=== PATIENT | female | born 1955 | race Caucasian/White ===

== ENCOUNTER 2016-07-01 13:25 | Emergency (ER) | payer BC ==
[~2016-07-01] VITALS: Ht 167.6 cm; Wt 68.0 kg
[2016-07-01 13:46] VITALS: BP 141/86
--- NOTE | 2016-07-01 14:51 | NUR ---
Patient ambulated to bed 4. RN evaluating patient at bedside.
--- NOTE | 2016-07-01 15:10 | NUR ---
PT PRESENTS TO ER W/C/O FLU S/SX; N/V, GENERALIZED BODY ACHES X3 DAYS. DENIES DIARRHEA; SKIN IS PINK/WARM/DRY; AAOX4 WITH EVEN AND STEADY GAIT; LUNGS CLEAR BL; HR EVEN AND REGULAR; PT DENIES ANY FEVER, CP, SOB, OR COUGH AT THIS TIME; PATIENT STATES PAIN OF 10/10 AT THIS TIME; VSS; PATIENT POSITIONED FOR COMFORT; HOB ELEVATED; BEDRAILS UP X2; BED DOWN. ER MD MADE AWARE OF PT STATUS.
[2016-07-01] MEDS ORDERED: KETOROLAC 60 MG/2 ML VIAL IM ONE (15:20)
[2016-07-01] MEDS ORDERED: ONDANSETRON 4 MG ODT PO ONE (15:20)
[2016-07-01 16:39] VITALS: BP 114/81
--- NOTE | 2016-07-01 16:39 | NUR ---
Patient discharged with v/s stable. Written and verbal after care instructions given and explained. Patient alert, oriented and verbalized understanding of instructions. Ambulatory with steady gait. All questions addressed prior to discharge. ID band removed. Patient advised to follow up with PMD. Rx of ZOFRAN, TRAMADOL given. Patient educated on indication of medication including possible reaction and side effects. Opportunity to ask questions provided and answered.
== END 2016-07-01 16:39 | disposition home or self-care (01) ==
LOC: MED 13:25
DX: B34.9 Viral infection, unspecified (principal); R03.0 Elevated blood-pressure reading, without diagnosis of hypertension
CPT/HCPCS: 96372; 99283; J1885; S0119

== ENCOUNTER 2020-08-10 01:25 | Emergency (ER) | payer BC ==
[~2020-08-10] VITALS: Ht 167.6 cm; Wt 82.1 kg
[2020-08-10 01:37] VITALS: BP 159/93
--- NOTE | 2020-08-10 01:39 | NUR ---
ERMD IN TRIAGE FOR MEDICAL EVALUATION.
--- NOTE | 2020-08-10 01:43 | NUR ---
PT TAKEN TO BED 2
--- NOTE | 2020-08-10 01:43 | NUR ---
65 Y/O FEMALE CAME TO THE ED C/O RT UPPER LEG PAIN. PT STATES THAT SHE VAS A VARICOSE VEIN THAT IS CAUSING THE PAIN. UPPER LEG HAS A VARICOSE VEIN THAT IS SWOLLEN, TENDER AND VERY WARM TO TOUCH. PT STATES THAT 10/ RT UPPER LEG PAIN IS RADIATING TO HER RIGHT LOWER EXTREMITIES. PMH: DENIES NKA
[2020-08-10] MEDS ORDERED: cefTRIAXone 1,000 MG VIAL ONE (02:09)
[2020-08-10] MEDS ORDERED: CEPH-588 PO (02:10)
[2020-08-10] MEDS ORDERED: IBUP-2218 PO (02:10)
[2020-08-10] MEDS ORDERED: LIDOCAINE MPF 1% 5 ML ONE (02:10)
[2020-08-10] MEDS ORDERED: ACET-9525 PO (02:10)
[2020-08-10] MEDS ORDERED: ACET-8386 PO (02:12)
[2020-08-10] MEDS: MORPHINE SULFATE 4 MG/ML SYR IM ONE (02:21)
[2020-08-10] MEDS: cefTRIAXone 1,000 MG in LIDOCAINE MPF 1% 2.1 ML IM ONE (02:23)
[2020-08-10] MEDS: ONDANSETRON 4 MG ODT PO ONE (02:24)
--- NOTE | 2020-08-10 02:50 | NUR ---
Patient discharged with v/s stable. Written and verbal after care instructions given and explained. Patient verbalized understanding. Ambulatory with steady gait. All questions addressed prior to discharge. Advised to follow up with PMD.
[2020-08-10 02:54] VITALS: BP 159/93
== END 2020-08-10 02:50 | disposition home or self-care (01) ==
LOC: MED 01:25
DX: L03.115 Cellulitis of right lower limb (principal); Z79.899 Other long term (current) drug therapy
CPT/HCPCS: 96372; 99284; J0696; J2001; J2270; Q0162

== ENCOUNTER 2020-08-26 05:10 | Inpatient (IN) | payer BC, SELFPAY ==
[~2020-08-26] VITALS: Ht 167.6 cm; Wt 79.4 kg
[~2020-08-26 05:10] MED LIST: ACET-8386 PO; CEPH-588 PO; IBUP-2218 PO
[2020-08-26 05:15] VITALS: BP 143/76
[2020-08-26] MEDS ORDERED: methylPREDNISolone SS 125 MG/2 ML VIAL IVP ONE (06:30)
[2020-08-26] MEDS ORDERED: ALBUTEROL SULFATE/IPRATROPIU 3 ML SOL IH ONE (06:30)
[2020-08-26] MEDS ORDERED: ASPIRIN 325 MG TAB PO ONE (06:35)
[2020-08-26 06:48] LABS: BASOPHILS % (AUTO) 0.7 % (0.0-2.0); EOSINOPHILS # (AUTO) 0.1 K/uL (0-0.4); EOSINOPHILS % (AUTO) 1.7 % (0.0-4.0); HEMATOCRIT 34.8 % (36-48); HEMOGLOBIN 11.8 g/dL (12.0-16.0); LYMPHOCYTES # (AUTO) 0.6 K/uL (2.5-16.5); LYMPHOCYTES % (AUTO) 16.2 % (20.5-51.1); MEAN CORPUSCULAR HEMOGLOBIN 32 pg (27-31); MEAN CORPUSCULAR HGB CONC 34 g/dL (33-37); MEAN CORPUSCULAR VOLUME 94.2 fL (80-94); MONOCYTES # (AUTO) 0.5 K/uL (0.8-1.0); MONOCYTES % (AUTO) 12.6 % (1.7-9.3); NEUTROPHILS # (AUTO) 2.7 K/uL (1.8-7.7); NEUTROPHILS % (AUTO) 68.8 % (42.2-75.2); PLATELET COUNT (AUTO) 252 K/uL (140-450); RED BLOOD CELL COUNT(AUTO) 3.69 MIL/uL (4.20-5.40); WHITE BLOOD COUNT (AUTO) 3.9 K/uL (4.8-10.8)
[2020-08-26] MEDS ORDERED: AZITHROMYCIN 250 MG TAB PO ONE (06:55)
[2020-08-26 06:58] LABS: ANION GAP 11.7 (8-16); CARBON DIOXIDE 21.7 mmol/L (21-32); CREATININE 0.8 mg/dL (0.6-1.3); POTASSIUM 3.4 mmol/L (3.5-5.1)
[2020-08-26 07:04] LABS: ALBUMIN 2.8 g/dL (3.4-5.0); TOTAL BILIRUBIN 0.4 mg/dL (0.0-1.0)
[2020-08-26] MEDS ORDERED: diphenhydrAMINE 50 MG/ML VIAL IVP ONE (07:05)
[2020-08-26] MEDS ORDERED: cefTRIAXone 1,000 MG VIAL ONE (07:14)
[2020-08-26] MEDS: NITROGLYCERIN 0.4 MG TAB SL ONE ×2 (07:31→07:35)
[2020-08-26] MEDS ORDERED: OSELTAMIVIR PHOSPHATE 75 MG CAP PO ONE (09:35)
[2020-08-26 10:15] VITALS: BP 134/81
[2020-08-26] MEDS ORDERED: guaiFENesin DM 200/20 MG-10 ML 10 ML UDC PO PRN (10:15)
[2020-08-26] MEDS ORDERED: ZOLPIDEM 5 MG TAB PO PRN (10:15)
[2020-08-26] MEDS ORDERED: ONDANSETRON 4 MG/2 ML VIAL IM/IVP PRN (10:15)
[2020-08-26] MEDS ORDERED: POTASSIUM CHLORIDE 10 MEQ TABER PO PRN (10:15)
[2020-08-26] MEDS ORDERED: ACETAMINOPHEN 325 MG TAB PO PRN (10:15)
[2020-08-26] MEDS ORDERED: DOCUSATE SODIUM 100 MG GELCAP PO PRN (10:15)
[2020-08-26] MEDS ORDERED: ALBUTEROL SULFATE/IPRATROPIU 3 ML SOL IH PRN (10:20)
[2020-08-26 10:48] LABS: PROTHROMBIN TIME 12.7 secs (10.8-13.4)
[2020-08-26 10:55] LABS: FREE T4 (FREE THYROXINE) 0.93 ng/dL (0.76-1.46); MAGNESIUM 1.8 mg/dL (1.8-2.4); PHOSPHORUS 2.3 mg/dL (2.5-4.9); THYROID STIMULATING HORMONE 3.13 uIU/mL (0.34-3.74)
[2020-08-26] MEDS: lisinopriL 20 MG TAB PO SCH (11:32)
[2020-08-26] MEDS: NACL 0.9% 1,000 ML IV SCH ×2 (11:32→22:45)
[2020-08-26] MEDS ORDERED: NITROGLYCERIN 0.4 MG TAB SL PRN (11:45)
[2020-08-26 12:00] VITALS: BP 127/75
[2020-08-26] MEDS: ALBUTEROL SULFATE/IPRATROPIU 3 ML SOL IH SCH ×2 (12:02→19:45)
[2020-08-26 13:39] LABS: CHOL/HDL RATIO 2.6 (1-4.5)
[2020-08-26 16:00] VITALS: BP 123/75
[2020-08-26] MEDS: ATORVASTATIN 20 MG TAB PO SCH (16:58)
[2020-08-26 20:00] VITALS: BP 117/65
[2020-08-26] MEDS: OSELTAMIVIR PHOSPHATE 75 MG CAP PO SCH (20:57)
[2020-08-26] MEDS: METOPROLOL 25 MG TAB PO SCH (20:58)
[2020-08-26] MEDS ORDERED: OSELTAMIVIR PHOSPHATE 75 MG CAP PO SCH (21:00)
[2020-08-26] MEDS: HYDROcodone/APAP 7.5/325 MG 1 TAB PO PRN (22:17)
[2020-08-27] VITALS: BP 115/75
[2020-08-27 04:00] VITALS: BP 112/75
[2020-08-27 06:07] LABS: T4 (THYROXINE) 5.9 ug/dL (4.5-12.0)
[2020-08-27] MEDS: ALBUTEROL SULFATE/IPRATROPIU 3 ML SOL IH SCH ×2 (07:11→12:39)
[2020-08-27 07:16] LABS: BASOPHILS % (AUTO) 0.7 % (0.0-2.0); HEMATOCRIT 34.9 % (36-48); HEMOGLOBIN 11.6 g/dL (12.0-16.0); LYMPHOCYTES # (AUTO) 1.1 K/uL (2.5-16.5); LYMPHOCYTES % (AUTO) 17.4 % (20.5-51.1); MEAN CORPUSCULAR HEMOGLOBIN 31 pg (27-31); MEAN CORPUSCULAR HGB CONC 33 g/dL (33-37); MEAN CORPUSCULAR VOLUME 94.6 fL (80-94); MONOCYTES # (AUTO) 0.7 K/uL (0.8-1.0); MONOCYTES % (AUTO) 11.2 % (1.7-9.3); NEUTROPHILS # (AUTO) 4.5 K/uL (1.8-7.7); NEUTROPHILS % (AUTO) 70.7 % (42.2-75.2); PLATELET COUNT (AUTO) 233 K/uL (140-450); RED BLOOD CELL COUNT(AUTO) 3.69 MIL/uL (4.20-5.40); RED CELL DISTRIBUTION WIDTH 13.9 % (11.6-13.7); WHITE BLOOD COUNT (AUTO) 6.3 K/uL (4.8-10.8)
[2020-08-27 07:25] LABS: ANION GAP 10.2 (8-16); CARBON DIOXIDE 22.8 mmol/L (21-32); CREATININE 0.6 mg/dL (0.6-1.3)
[2020-08-27 08:00] VITALS: BP 126/77
[2020-08-27] MEDS ORDERED: CRUSHER, PILL MC ONE (09:45)
[2020-08-27] MEDS: AZITHROMYCIN 250 MG TAB PO SCH (09:56)
[2020-08-27] MEDS: METOPROLOL 25 MG TAB PO SCH ×2 (09:57→21:03)
[2020-08-27] MEDS: lisinopriL 20 MG TAB PO SCH (09:57)
[2020-08-27] MEDS: ECOTRIN 81 MG TABEC PO SCH (09:57)
[2020-08-27] MEDS: PANTOPRAZOLE 40 MG TABEC PO SCH (09:57)
[2020-08-27] MEDS: OSELTAMIVIR PHOSPHATE 75 MG CAP PO SCH ×2 (09:58→21:04)
[2020-08-27] MEDS: NACL 0.9% 1,000 ML IV SCH ×2 (11:47→23:45)
[2020-08-27 12:00] VITALS: BP 124/74
[2020-08-27 16:00] VITALS: BP 134/80
[2020-08-27] MEDS: ALPRAZolam 0.5 MG TAB PO PRN (16:33)
[2020-08-27] MEDS: ATORVASTATIN 20 MG TAB PO SCH (17:34)
[2020-08-27 20:00] VITALS: BP 121/68
[2020-08-27] MEDS: HYDROcodone/APAP 7.5/325 MG 1 TAB PO PRN (21:16)
[2020-08-28] VITALS: BP 120/71
[2020-08-28 04:00] VITALS: BP 123/81
[2020-08-28 07:10] LABS: BASOPHILS % (AUTO) 0.7 % (0.0-2.0); EOSINOPHILS # (AUTO) 0.1 K/uL (0-0.4); EOSINOPHILS % (AUTO) 5.1 % (0.0-4.0); HEMATOCRIT 38.6 % (36-48); HEMOGLOBIN 12.7 g/dL (12.0-16.0); LYMPHOCYTES # (AUTO) 1.3 K/uL (2.5-16.5); LYMPHOCYTES % (AUTO) 43.7 % (20.5-51.1); MEAN CORPUSCULAR HEMOGLOBIN 32 pg (27-31); MEAN CORPUSCULAR HGB CONC 33 g/dL (33-37); MEAN CORPUSCULAR VOLUME 95.8 fL (80-94); MONOCYTES # (AUTO) 0.2 K/uL (0.8-1.0); MONOCYTES % (AUTO) 7.5 % (1.7-9.3); NEUTROPHILS # (AUTO) 1.2 K/uL (1.8-7.7); PLATELET COUNT (AUTO) 268 K/uL (140-450); RED BLOOD CELL COUNT(AUTO) 4.02 MIL/uL (4.20-5.40); RED CELL DISTRIBUTION WIDTH 14.5 % (11.6-13.7); WHITE BLOOD COUNT (AUTO) 2.9 K/uL (4.8-10.8)
[2020-08-28 07:36] LABS: ALBUMIN 2.4 g/dL (3.4-5.0); CARBON DIOXIDE 24.4 mmol/L (21-32); CREATININE 0.8 mg/dL (0.6-1.3); MAGNESIUM 1.8 mg/dL (1.8-2.4); PHOSPHORUS 4.2 mg/dL (2.5-4.9); POTASSIUM 4.4 mmol/L (3.5-5.1); TOTAL BILIRUBIN 0.3 mg/dL (0.0-1.0)
[2020-08-28 08:00] VITALS: BP 123/70
[2020-08-28] MEDS: ALBUTEROL SULFATE/IPRATROPIU 3 ML SOL IH SCH (08:12)
[2020-08-28] MEDS: AZITHROMYCIN 250 MG TAB PO SCH (09:56)
[2020-08-28] MEDS: PANTOPRAZOLE 40 MG TABEC PO SCH (09:57)
[2020-08-28] MEDS: OSELTAMIVIR PHOSPHATE 75 MG CAP PO SCH (09:57)
[2020-08-28] MEDS: ECOTRIN 81 MG TABEC PO SCH (09:57)
[2020-08-28] MEDS: lisinopriL 20 MG TAB PO SCH (09:57)
[2020-08-28] MEDS: METOPROLOL 25 MG TAB PO SCH (09:57)
[2020-08-28] MEDS: ALPRAZolam 0.5 MG TAB PO PRN (10:19)
[2020-08-28] MEDS ORDERED: CEFU500T73 PO (12:12)
[2020-08-28] MEDS ORDERED: LACT1.5C PO (12:12)
[2020-08-28] MEDS ORDERED: TAM75 PO (12:12)
[2020-08-28] MEDS ORDERED: AZIT250T3 PO (12:12)
[2020-08-28] MEDS ORDERED: ACET-8386 PO (12:16)
[2020-08-28 12:38] VITALS: BP 129/80
== END 2020-08-28 13:50 | disposition home or self-care (01) | DRG 193 ==
LOC: MED 05:10 → MTU 09:55
PROVIDERS: ADMIT Family Medicine; ATTEND Family Medicine
DX: J10.00 Influenza due to other identified influenza virus with unspecified type of pneumonia (principal); J96.00 Acute respiratory failure, unspecified whether with hypoxia or hypercapnia; E43 Unspecified severe protein-calorie malnutrition; D68.59 Other primary thrombophilia; E87.1 Hypo-osmolality and hyponatremia; Z20.822 Contact with and (suspected) exposure to COVID-19; D64.9 Anemia, unspecified; D17.9 Benign lipomatous neoplasm, unspecified; I10 Essential (primary) hypertension; M94.0 Chondrocostal junction syndrome [Tietze]; E87.6 Hypokalemia; Z68.28 Body mass index [BMI] 28.0-28.9, adult
CPT/HCPCS: 36415; 71045; 71275; 80048; 80053; 82150; 82550; 83036; 83605; 83615; 83690; 83735; 83880; 84100; 84436; 84439; 84443; 84479; 84484; 85025; 85379; 85610; 85651; 85730; 86140; 87081; 87205; 87804; 93005; 94640; 96365; 96375; 99285; J0696; J1200; J1644; J2930; J7060; Q9967; U0003